=== PATIENT | male | born 1980 | race Caucasian/White ===

== ENCOUNTER → 2018-10-29 | Outpatient (CLI) | payer BC ==
[2018-10-29 16:01] LABS: FREE T4 (FREE THYROXINE) 0.97 ng/dL (0.78-2.19)
[2018-10-29 16:15] LABS: THYROID STIMULATING HORMONE 2.01 uIU/mL (0.47-4.68)
== END ==
LOC: OD 14:45
PROVIDERS: ATTEND Otolaryngology
DX: E07.9 Disorder of thyroid, unspecified (principal)
CPT/HCPCS: 36415; 84439; 84443

== ENCOUNTER → 2018-11-03 | Outpatient (CLI) | payer BC ==
--- NOTE | 2018-11-03 14:43 | RADIOLOGY REPORT (SQ) ---
EXAM DESCRIPTION: CT SOFT TISSUE NECK WITH COMPLETED DATE/TIME: 11/03/2018 2:00 pm REASON FOR STUDY: THYROID MASS (E07.9) E07.9 DISORDER OF THYROID, UNSPECIFIED COMPARISON: None. TECHNIQUE: Post IV contrasted scanning from skull base through lung apices with review of bone, soft tissue and lung windows. Reconstructed coronal and sagittal MPR images reviewed. All images stored on PACS. All CT scanners at this facility use dose modulation, iterative reconstruction, and/or weight based d osing when appropriate to reduce radiation dose to as low as reasonably achievable (ALARA). [facility]: Dose Right [facility]: CareDose [facility]: Dose Right [facility]: Teradose 4D [facility]: [facility] CONTRAST TYPE AND DOSE: contrast/concentration: Isovue 350.00 mg/ml; Total Contrast Delivered: 75.0 ml; Total Saline Delivered: 55.0 ml RENAL FUNCTION: None required. The patient is less than 50 years old. RADIATION DOSE: . LIMITATIONS: None. FINDINGS: SKULL BASE: Intact. MAJOR SALIVARY GLANDS: No solid or cystic masses. No inflammatory changes. LYMPHADENOPATHY: No adenopathy. MUCOSAL MASSES OR ASYMMETRY: No mucosal masses or asymmetry. LARYNX/CORDS: No abnormal findings. VASCULAR STRUCTURES: The major vessels are patent. LUNG APICES: Clear. BONES: Intact. THYROID: The right lobe of the thyroid gland is significantly enlarged and is heterogeneous with both hyperdense and hypodense areas. The hypodense areas are not obviously cystic. PARANASAL SINUSES: Clear. OTHER: None. IMPRESSION: Enlarged, heterogeneous right lobe of thyroid gland. Recommend ultrasound for further e valuation. TECHNICAL DOCUMENTATION: JOB ID: [id number] Quality ID # [id number]: Final reports with documentation of one or more dose reduction techniques (e.g., Au tomated exposure control, adjustment of the mA and/or kV according to patient size, use of iterative reconstruction technique) 2010 [employer]- All Rights Reserved Reading location - IP/workstation name: [email or web address]
== END ==
LOC: RAD 13:38
PROVIDERS: ATTEND Otolaryngology
DX: E07.9 Disorder of thyroid, unspecified (principal)
CPT/HCPCS: 70491

== ENCOUNTER → 2018-11-17 | Day surgery (SDC) | payer BC ==
[~2018-11-17] MED LIST: LIDOCAINE 1% INJ-PF (10 MG/ML) 30 ML SDV ONE
== END ==
LOC: RAD 12:26
PROVIDERS: ATTEND Otolaryngology
DX: E07.9 Disorder of thyroid, unspecified (principal)
CPT/HCPCS: 88173 ×2; 88305 ×2; 88172; 60100; J3490

== ENCOUNTER → 2018-12-31 | Outpatient (CLI) | payer BC ==
[2018-12-31 09:34] LABS: ALBUMIN 4.3 g/dL (3.5-5.0); CALCIUM 9.9 mg/dL (8.4-10.2); PHOSPHORUS 3.5 mg/dL (2.5-4.5)
== END ==
LOC: LAB 08:42
PROVIDERS: ATTEND Otolaryngology
DX: E07.9 Disorder of thyroid, unspecified (principal)
CPT/HCPCS: 36415; 82040; 82306; 82310; 83735; 83970; 84100

== ENCOUNTER 2019-01-07 08:24 | Day surgery (SDC) | payer BC ==
[~2019-01-07 08:24] MED LIST changes: +BUPIVACAINE HCL 0.5%/EPI 1:200000 INJ 1.8 ML CARTRIDGE ONE; +CEFAZOLIN 2 GM/D5W RTU 2 GM/50 ML RTUPB IV ONE; +EPINEPHRINE INJ/PF 1 MG/1 ML AMPULE ONE; -LIDOCAINE 1% INJ-PF (10 MG/ML) 30 ML SDV ONE; +LIDOCAINE 2%/EPINEPHRINE INJ 1.7 ML CARTRIDGE ONE; +OXYMETAZOLINE HCL 0.05% NASAL SPRAY 15 ML BOTTLE ONE
[2019-01-07] MEDS ORDERED: FENTANYL CITRATE INJ/PF 250 MCG/5 ML AMPULE ONE (09:59)
[2019-01-07] MEDS ORDERED: MIDAZOLAM 2 MG/2 ML INJ ONE (09:59)
[2019-01-07] MEDS ORDERED: ACETAMINOPHEN 1,000 MG/100 ML RTUPB IV ONE (10:00)
[2019-01-07] MEDS ORDERED: PROPOFOL INJ 200 MG/20 ML VIAL IV ONE (10:00)
[2019-01-07] MEDS ORDERED: FENTANYL CITRATE INJ/PF 100 MCG/2 ML AMPUL IV PRN ×3 (10:51)
[2019-01-07] MEDS ORDERED: MEPERIDINE HCL/PF INJ 25 MG/1 ML DISP.SYRIN IV PRN (10:51)
[2019-01-07] MEDS ORDERED: OXYCODONE-ACETAMINOPHEN 5-325 MG TABLET PO PRN ×2 (10:51)
[2019-01-07] MEDS ORDERED: PROMETHAZINE HCL INJ 25 MG/1 ML VIAL IV PRN ×2 (10:51)
[2019-01-07] MEDS ORDERED: DIPHENHYDRAMINE HCL 50 MG/ML VIAL IV PRN (10:51)
[2019-01-07] MEDS ORDERED: ROCURONIUM BROMIDE INJ 50 MG/5 ML VIAL IV ONE (12:35)
[2019-01-07] MEDS ORDERED: GLYCOPYRROLATE 1 MG/5 ML SYRINGE ONE (12:35)
[2019-01-07] MEDS ORDERED: LIDOCAINE 2% INJ-PF (20 MG/ML) 2 ML AMPUL ONE (12:35)
[2019-01-07] MEDS ORDERED: DEXAMETHASONE SOD PHOSPHATE INJ 4 MG/1 ML VIAL ONE (12:35)
[2019-01-07] MEDS ORDERED: SUCCINYLCHOLINE CHLORIDE INJ 200 MG/10 ML VIAL ONE (12:35)
[2019-01-07] MEDS ORDERED: ONDANSETRON HCL INJ/PF 4 MG/2 ML SDV ONE (12:35)
[2019-01-07] MEDS ORDERED: OXYMETAZOLINE HCL 0.05% NASAL SPRAY 15 ML BOTTLE ONE (12:40)
[2019-01-07] MEDS: FENTANYL CITRATE INJ/PF 100 MCG/2 ML AMPUL ONE ×2 (13:25→13:30)
[2019-01-07] MEDS ORDERED: DEXAMETHASONE SOD PHOS INJ 10 MG/1 ML VIAL ONE (13:31)
[2019-01-07] MEDS ORDERED: HYDROCODONE/ACETAMINOPHEN 10-325 MG TABLET PO PRN (14:04)
[2019-01-07] MEDS ORDERED: ONDANSETRON HCL INJ/PF 4 MG/2 ML SDV IV PRN (14:05)
[2019-01-07] MEDS ORDERED: HYDROCODONE/ACETAMINOPHEN 10-325 MG TABLET ONE (14:12)
--- NOTE | 2019-01-07 14:18 | OPERATIVE REPORT E ---
Operative Report NAME: DEYANIRA PETER : 1980 AGE: 38Y DATE OF SURGERY: 01/07/2019 ROOM: HISTORY: A 38-year-old male with a large right thyroid nodule. Presents today for a right thyroid lobectomy and isthmusectomy. The patient did have a fine needle aspiration biopsy performed which was [place] class III cytopathology. Informed consent was obtained from the patient. PREOPERATIVE DIAGNOSIS: RIGHT THYROID NODULE. POSTOPERATIVE DIAGNOSIS: RIGHT THYROID NODULE. OPERATION: 1. RIGHT THYROID LOBECTOMY AND ISTHMUSECTOMY. 2. FLEXIBLE FIBEROPTIC NASOPHARYNGEAL LARYNGOSCOPY. SURGEON: VAIBHAV HERNANDEZ MD OCCUPATIONAL HEALTH COORDINATOR: Gene Armstrong DO ANESTHESIA: General via endotracheal intubation using a laryngeal EMG tube. PROCEDURE: After receiving informed consent from the patient, he was taken to the operating room and placed supine on the operating table. Successful induction and intubation by Anesthesia using laryngeal EMG tube. The nerve integrity monitor was calibrated and found to be functioning normally. Next, a shoulder roll was placed. The neck was extended. The proposed incision line was marked and infiltrated with 2% Xylocaine with 1:[id number] epinephrine. The patient was then prepped and draped in sterile fashion. A 15 blade was used to make the incision. This was taken down through the subcutaneous tissue and through the platysma muscle. Next, subplatysmal flaps were elevated superiorly and inferiorly. The strap muscles were then in the midline. Next, the sternothyroid muscle was from the right lobe of the thyroid and we turned our attention superiorly, where the superior pole was dissected away from the surrounding tissue. The superior thyroid vasculature was ligated and sealed using the LigaSure. We then turned attention inferiorly, where we identified the inferior thyroid vasculature. This was ligated and sealed using the LigaSure, and then we proceeded to work from a lateral to medial direction toward the trachea. We did identify what appeared to be both the superior and inferior parathyroid prospect. We did encounter Wong's ligament and this was then cauterized and ligated, releasing the thyroid from the anterior tracheal wall. We then continued our dissection over the anterior trachea and we transected the isthmus of the thyroid in a left paramedian position. Hemostasis was obtained using bipolar electrocautery. The thyroid bed was then irrigated with copious amounts of normal saline, and hemostasis was obtained. Surgicel was placed into the wound bed and then the wound was closed in layers. The strap muscles were approximated using 4-0 Monocryl. The deep layers and platysma muscles were approximated using 4-0 Monocryl, as was the dermis. Next, Dermabond, Mastisol, and Steri-Strips were applied along with a dressing. The patient was given back to Anesthesia, successfully extubated without complications. After the extubation, a flexible fiberoptic nasopharyngeal laryngoscope was inserted through the left naris down into the laryngeal inlet. The vocal cords were identified and both vocal cords were found to be mobile. The vocal cords were mobile bilaterally. The patient was then taken to the post anesthesia care unit in stable condition with spontaneous respiration. No complications. Estimated blood loss was about 50 mL. Fluids were 1500 mL crystalloid. DICTATING PHYSICIAN: VAIBHAV HERNANDEZ M.D. [id number] PHY#: [id number] ID: [id number] JOB#: [id number] ACCT: [id number] cc:VAIBHAV HERNANDEZ MD > MTDD
[2019-01-07] MEDS ORDERED: ONDANSETRON 4 MG TAB.RAPDIS ONE (15:13)
[2019-01-07 15:38] VITALS: BP 110/57
== END 2019-01-07 15:35 | disposition home or self-care (01) ==
LOC: OROUT 08:24
PROVIDERS: ATTEND Otolaryngology
DX: C73 Malignant neoplasm of thyroid gland (principal); E06.3 Autoimmune thyroiditis; E04.1 Nontoxic single thyroid nodule; Z88.8 Allergy status to other drugs, medicaments and biological substances
CPT/HCPCS: 88307 ×2; 60225; 31575; J2250; J3490 ×5; J1100 ×2; S0119; J3010 ×2; J0330; J2405; J2704; J0690; J0131; 320; J0171

== ENCOUNTER 2019-01-21 07:03 | Day surgery (SDC) | payer BC ==
[~2019-01-21 07:03] MED LIST changes: -BUPIVACAINE HCL 0.5%/EPI 1:200000 INJ 1.8 ML CARTRIDGE ONE; -CEFAZOLIN 2 GM/D5W RTU 2 GM/50 ML RTUPB IV ONE; +CEFAZOLIN 2 GM/D5W RTU 2 GM/50 ML RTUPB IV SCH; -EPINEPHRINE INJ/PF 1 MG/1 ML AMPULE ONE; -LIDOCAINE 2%/EPINEPHRINE INJ 1.7 ML CARTRIDGE ONE; -OXYMETAZOLINE HCL 0.05% NASAL SPRAY 15 ML BOTTLE ONE
[2019-01-21] MEDS ORDERED: CEFAZOLIN 2 GM/D5W RTU 2 GM/50 ML RTUPB IV ONE (07:07)
[2019-01-21] MEDS ORDERED: KETOROLAC TROMETHAMINE 60 MG/2 ML SDV ONE (07:19)
[2019-01-21] MEDS ORDERED: ONDANSETRON HCL INJ/PF 4 MG/2 ML SDV ONE (07:19)
[2019-01-21] MEDS ORDERED: MIDAZOLAM 2 MG/2 ML INJ ONE (07:19)
[2019-01-21] MEDS ORDERED: FENTANYL CITRATE INJ/PF 100 MCG/2 ML AMPUL ONE (07:19)
[2019-01-21] MEDS ORDERED: DEXAMETHASONE SOD PHOSPHATE INJ 4 MG/1 ML VIAL ONE (07:19)
[2019-01-21] MEDS ORDERED: PROPOFOL INJ 200 MG/20 ML VIAL IV ONE (07:20)
[2019-01-21] MEDS ORDERED: EPHEDRINE SULFATE INJ 50 MG/1 ML AMPULE ONE ×2 (07:20→08:25)
[2019-01-21] MEDS ORDERED: ACETAMINOPHEN 1,000 MG/100 ML RTUPB IV ONE (07:20)
[2019-01-21] MEDS ORDERED: SCOPOLAMINE HYDROBROMIDE 1.5 MG PATCH.TD72 ONE (07:41)
[2019-01-21] MEDS ORDERED: EPINEPHRINE INJ/PF 1 MG/1 ML AMPULE ONE (07:51)
[2019-01-21] MEDS ORDERED: LIDOCAINE 2%/EPINEPHRINE INJ 1.7 ML CARTRIDGE ONE (07:51)
[2019-01-21] MEDS ORDERED: BUPIVACAINE HCL 0.5%/EPI 1:200000 INJ 1.8 ML CARTRIDGE ONE (07:51)
[2019-01-21] MEDS ORDERED: OXYMETAZOLINE HCL 0.05% NASAL SPRAY 15 ML BOTTLE ONE ×2 (07:52→08:24)
[2019-01-21] MEDS ORDERED: LACTATED RINGERS 1000 ML IV PRN (08:02)
[2019-01-21] MEDS ORDERED: MORPHINE SULFATE 10 MG/ML INJ IV PRN (08:53)
[2019-01-21] MEDS ORDERED: DIPHENHYDRAMINE HCL 50 MG/ML VIAL IV PRN (08:53)
[2019-01-21] MEDS ORDERED: MEPERIDINE HCL/PF INJ 25 MG/1 ML DISP.SYRIN IV PRN (08:53)
[2019-01-21] MEDS ORDERED: PROMETHAZINE HCL INJ 25 MG/1 ML VIAL IV PRN ×2 (08:53)
[2019-01-21] MEDS ORDERED: FENTANYL CITRATE INJ/PF 100 MCG/2 ML AMPUL IV PRN ×3 (08:53)
[2019-01-21] MEDS ORDERED: HYDROMORPHONE HCL INJ/PF 2 MG/ML AMPULE ONE (09:18)
[2019-01-21] MEDS ORDERED: PROMETHAZINE HCL INJ 25 MG/1 ML VIAL ONE (09:19)
[2019-01-21] MEDS ORDERED: ONDANSETRON HCL INJ/PF 4 MG/2 ML SDV IV PRN (10:53)
[2019-01-21] MEDS ORDERED: HYDROCODONE/ACETAMINOPHEN 5-325 MG TABLET PO PRN (10:53)
[2019-01-21] MEDS ORDERED: CALCIUM CARBONATE 500 MG TABLET PO PRN (10:54)
[2019-01-21] MEDS ORDERED: CALCITRIOL 0.25 MCG CAPSULE PO PRN (10:54)
--- NOTE | 2019-01-21 11:09 | OPERATIVE REPORT E ---
Operative Report NAME: DEYANIRA PETER : 1980 AGE: 38Y DATE OF SURGERY: 01/21/2019 ROOM: HISTORY: A 38-year-old male who previously underwent a right thyroid lobectomy. 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 He presents today for a completion thyroidectomy which will be a left thyroid lobectomy. Informed consent was obtained from the patient. PREOPERATIVE DIAGNOSIS: Papillary thyroid carcinoma. POSTOPERATIVE DIAGNOSIS: Papillary thyroid carcinoma. OPERATION: 1. Completion thyroidectomy. 2. Left thyroid lobectomy. 3. Flexible Nasopharyngolaryngoscopy SURGEON: VAIBHAV HERNANDEZ MD PACE ANALYST: Gene Armstrong DO ANESTHESIA: General via laryngeal EMG tube. DESCRIPTION OF PROCEDURE: After receiving informed consent from the patient, he was taken to the operating room and placed supine on the operating table. After a successful induction using laryngeal EMG tube, the nerve integrity monitor was calibrated and found to be working appropriately. Next, the shoulder roll was placed and then the previous incision site was infiltrated with 2% Xylocaine with 1:100,000 epinephrine. The patient was then prepped and draped in a sterile fashion. A 15 blade was used to make an incision through the previous incision site, and this was taken down through the subcutaneous tissue and the platysma muscle. Next, subplatysmal flaps were elevated superiorly and inferiorly. The strap muscles were in the midline. The left lobe of the thyroid was identified. This was carefully dissected from the sternothyroid muscle. We then dissected superiorly where the superior pole was identified surrounded from the surrounding tissues. The superior vasculature was ligated and sealed using the LigaSure. We then turned our attention inferiorly where we identified the inferior thyroid vasculature and that was sealed and ligated using the LigaSure. We then continued our dissection from laterally to medially towards the trachea. We did identify what appeared to be an inferior thyroid prospect and we also identified a superior parathyroid prospect. We continued our dissection towards Wong ligament which we released and successfully removed the left lobe of the thyroid. The recurrent laryngeal nerve was identified and stimulated appropriately with the Prass probe. Next, the wound bed was then irrigated with copious amounts of normal saline. No bleeding was noted. Surgicel was placed into the wound bed. The wound was then closed in layers. The strap muscles were approximated using 4-0 Monocryl, as was the platysma muscle and subcutaneous tissue, and finally the dermis was closed using a 4-0 Monocryl. Next, Dermabond, Mastisol, and Steri-Strips were applied. The patient was then given back to Anesthesia who successfully extubated the patient. A flexible nasopharyngolaryngoscope was inserted in through the nasal cavity down into the laryngeal inlet. Both the vocal cords were found to be moving, so the vocal cords were mobile bilaterally. This was then removed from the patient. The patient was given back to Anesthesia. The patient was then transferred to the postanesthesia care unit in stable condition, spontaneous respirations, no complications. The estimated blood loss was 20 mL, fluid around 800 mL/hr of crystalloid. DICTATING PHYSICIAN: VAIBHAV HERNANDEZ M.D. [id number] PHY#: [id number] ID: [id number] JOB#: [id number] ACCT: [id number] cc:VAIBHAV HERNANDEZ MD > MTDD
[2019-01-21 13:32] VITALS: BP 135/75
[2019-01-21] MEDS ORDERED: SUCCINYLCHOLINE CHLORIDE INJ 200 MG/10 ML VIAL ONE (21:14)
== END 2019-01-21 13:15 | disposition home or self-care (01) ==
LOC: OROUT 07:03
PROVIDERS: ATTEND Otolaryngology
DX: C73 Malignant neoplasm of thyroid gland (principal); E06.3 Autoimmune thyroiditis; Z79.899 Other long term (current) drug therapy
CPT/HCPCS: 60225; 36415; 83970; 88307 ×2; J2250; J3490 ×2; J1100; J1885; J3010; J2550; J0330; J2405; J2704; J0690; J0131; 320; J0171; J1170